=== PATIENT | female | born 1970 ===

== ENCOUNTER → 2018-08-11 21:24 | Outpatient (REF) | payer OTHER, SELFPAY ==
[2018-08-11 21:27] LABS: Bacteria Urine None Seen; RBC Urine None Seen (0-5/HPF); WBC Urine None Seen (0-5/HPF)
[2018-08-11 23:17] LABS: Alanine Aminotransferase 27 IU/L (9-52); Albumin Globulin Ratio 1.4 (1.0-2.8); Alkaline Phosphatase 53 U/L (38-126); Aspartate Aminotransferase 27 IU/L (14-36); Bilirubin Total 0.5 mg/dL (0.2-1.3); Blood Urea Nitrogen 16 mg/dL (7-17); Calcium 9.3 mg/dL (8.4-10.2); Carbon Dioxide 27 mmol/L (22-32); Chloride 103 mmol/L (98-107); Cholesterol 234 mg/dL (140-199); Estimated Glomerular Filt Rate > 60.0 mL/min (>60); Globulin 2.9 g/dL (1.7-4.1); Glucose 80 mg/dL (70-100); HEMOLYSIS < 15 (0-50); Sodium 136 mmol/L (137-145); Total Protein 6.9 g/dL (6.3-8.2); Triglycerides 150 mg/dL (35-150)
[2018-08-11 23:22] LABS: Appearance Urine UA CLEAR; Bilirubin Urine UA NEGATIVE (NEGATIVE); Color Urine UA YELLOW; Glucose Urine UA NEGATIVE (Negative); Ketones Urine UA NEGATIVE (NEGATIVE); Leukocyte Esterase Urine UA NEGATIVE (NEGATIVE); Nitrite Urine UA NEGATIVE (Negative); Occult Blood Urine UA TRACE-LYSED (Negative); Protein Urine UA NEGATIVE (Negative); Urobilinogen Urine UA 0.2 E.U./dL (0.2); pH Urine UA 5.5 (4.5-8.0)
[2018-08-11 23:25] LABS: HDL Cholesterol 112 mg/dL (40-60); LDL Cholesterol Calculated 92 mg/dL (<100)
[2018-08-11 23:27] LABS: Add Manual Diff / Slide Review NO; Basophils Absolute Auto 100 /uL (0-100); Eosinophils Absolute Auto 300 /uL (0-450); Eosinophils Percent Auto 4.2 % (2-4); Hematocrit 41.3 % (36-46); Hemoglobin 13.3 g/dL (12.0-16.0); Lymphocytes Absolute Auto 1800 /uL (1100-4500); Lymphocytes Percent Auto 27.8 % (25-40); Mean Corpuscular HGB Conc 32.2 % (30-36); Mean Corpuscular Hemoglobin 31.3 PG (26-34); Mean Corpuscular Volume 97.1 fL (80-100); Monocytes Absolute Auto 400 /uL (0-900); Monocytes Percent Auto 5.6 % (3-14); Neutrophils Absolute Auto 4000 /uL (1500-7000); Neutrophils Percent Auto 61.4 % (50-75); Platelet Count 295 X10^3/uL (150-400); Red Blood Cell Count 4.25 X10^6/uL (4.0-5.2); White Blood Cell Count 6.5 X10^3/uL (4.5-11.0)
[2018-08-11 23:43] LABS: Culture Indicated Urine Cult Not Indicated; Urine Comments Microscopic Normal
[2018-08-11 23:53] LABS: TSH w/ Reflex to FT4 1.61 uIU/mL (0.47-4.68)
== END ==
LOC: LAB 21:24
PROVIDERS: Visit Provider Naturopath
DX: Z00.01 Encounter for general adult medical examination with abnormal findings (principal); N63.22 Unspecified lump in the left breast, upper inner quadrant; G43.829 Menstrual migraine, not intractable, without status migrainosus
CPT/HCPCS: 36415; 80053; 80061; 81001; 82728; 84443; 85025